=== PATIENT | female | born 1995 | race Caucasian/White ===

== ENCOUNTER → 2018-05-31 | Outpatient (CLI) | payer BC ==
--- NOTE | 2018-05-31 13:04 | ECHOF ---
Referral Reason:I34 Nonrheumatic mitral valve disorders MEASUREMENTS -------- HEIGHT: 172.7 cm WEIGHT: 68.0 kg BP: IVSd: 0.9 cm (0.6 - 1.1) LVIDd: 4.3 cm (3.9 - 5.3) LVPWd: 0.8 cm (0.6 - 1.1) IVSs: 1.2 cm LVIDs: 3.1 cm LVPWs: 1.4 cm LA Diam: 2.3 cm (2.7 - 3.8) Ao Diam: 3.0 cm (2.0 - 3.7) AV Cusp: 1.9 cm (1.5 - 2.6) LA Diam: 2.6 cm (2.7 - 3.8) EPSS: 0.4 cm MV E Rusty: 0.80 m/s MV DecT: 145 ms MV A Rusty: 0.58 m/s MV E/A Ratio: 1.38 RAP: 5.00 mmHg RVSP: 10.43 mmHg MV EF SLOPE: 117.50 mm/s (70 - 150) MV EXCURSION: 2.15 cm (> 18.000) FINDINGS -------- Sinus rhythm. This was a technically good study. LV size, wall thickness and systolic function are normal, with an EF greater than 55%. The left ga tricular size is normal. The right ventricle is normal in size and function. The left atrial size is normal. The right atrial size is normal. The aortic valve is trileaflet, and appears structurally normal. No aortic stenosis or regurgitation. There is trace to mild mitral regurgitation. Trace tricuspid regurgitation present. There is no evidence of pulmonary hypertension. The right ventricular systolic pressure, as measured by Doppler, is 10.43mmHg. There is no pulmonic regurgitation present. The aortic root size is normal. There is no pericardial effusion. CONCLUSIONS -------- 1. LV size, wall thickness and systolic function are normal, with an EF greater than 55%. 2. The left ventricular size is normal. 3. The right ventricle is normal in size and function. 4. The left atrial size is normal. 5. The right atrial size is normal. 6. The aortic valve is trileaflet, and appears structurally normal. No aortic stenosis or regurgitati on. 7. There is trace to mild mitral regurgitation. 8. Trace tricuspid regurgitation present. 9. There is no evidence of pulmonary hypertension. 10. The right ventricular systolic pressure, as measured by Doppler, is 10.43mmHg. 11. There is no pulmonic regurgitation present. 12. The aortic root size is normal. 13. There is no pericardial effusion. VENDING MECHANIC: Beverly Bolaños RDCS
--- NOTE | 2018-05-31 13:55 | EST ---
EXERCISE STRESS AGE: 22 SEX: F HT: 5'8" WT: 150 PROTOCOL: Jerrell Stress Test STAGE: III DURATION OF EXERCISE: 9:53 HEART RATE REST: 75 BLOOD PRESSURE REST: 114/64 MAXIMUM HEART RATE ACHIEVED: 168 MAXIMUM BLOOD PRESSURE: 121/54 85% MPHR: 170 100% MPHR: 200 METS: 10.7 INDICATIONS: Anxiety, bradycardia, chest pain. CLINICAL INFORMATION: Patient was exercised for a total period of 9 minutes and 53 seconds. Peak heart rate of 168 was achieved, maximum blood pressure of 121/54 mmHg was noted. The resting EKG shows normal sinus rhythm with normal RI interval and QRS duration and normal ST-T waves. No ST-segment depression suggestive of ischemia is noted. Patient did not complain of any chest pain during the test. Occasional PVCs were noted. FINAL IMPRESSION: 1. This stress test is not suggestive of ischemia. 2. Patient's exercise tolerance is normal. 3. Occasional premature ventricular contractions were noted. MMODL / IJN: [id number] /
== END | disposition home or self-care (01) ==
LOC: RADNMMAIN 10:29
PROVIDERS: ATTEND Family Medicine
DX: I34.0 Nonrheumatic mitral (valve) insufficiency (principal); R94.31 Abnormal electrocardiogram [ECG] [EKG]; R07.9 Chest pain, unspecified; Z91.018 Allergy to other foods; Z91.011 Allergy to milk products
CPT/HCPCS: 93017; 93306